=== PATIENT | male | born 1955 | race Caucasian/White ===

== ENCOUNTER 2016-05-26 11:32 | Emergency (ER) ==
[2016-05-26 11:51] VITALS: BP 151/78
[2016-05-26] MEDS ORDERED: DILAUDID IM ONE (13:25)
[2016-05-26] MEDS ORDERED: ZOFRAN ODT PO ONE (13:25)
[2016-05-26] MEDS ORDERED: DECADRON IM ONE (13:25)
--- NOTE | 2016-05-26 13:26 | PROVIDER DOCUMENTATION ---
HPI-Musculoskeletal Pain/Inj - GENERAL Chief Complaint: Back Pain Stated Complaint: BACK,RT LEG PAIN Time Seen by Provider: 05/26/16 13:00 Source: patient - HX OF PRESENT ILLNESS-MUSKULOSKELTAL Nature of Presenting Problem: Pt is a 61 y/o white male c chief complaint of lower lumber back pain radiating to his R hip and down the lateral aspect of his R leg in the sciatic n. distribution. Pt has a h/o 3 back surgeries and known sciatica. pt states he is set to follow up with his back surgeon later this week. He denies an new injury, loss of bowel or bladder control, loss of sensation to the groin. On arrival, pt is ambulatory and in minimal distress. Review of Systems - Adult - REVIEW OF SYSTEMS - ADULT Constitutional: reports: no symptoms reported. denies: chills, fatique Eyes: reports: no symptoms reported. denies: blurred vision, double vision Ears, Nose, Mouth & Throat: reports: no symptoms reported. denies: ear pain, nose pain Cardiovascular: reports: no symptoms reported. denies: chest pain, irregular heart rate Respiratory: reports: no symptoms reported. denies: cough, shortness of breath Gastrointestinal: reports: no symptoms reported. denies: abdominal pain, nausea Genitourinary: reports: no symptoms reported. denies: dysuria, hematuria Musculoskeletal: reports: bone pain, back pain, joint pain, muscle aches Integumentary: reports: no symptoms reported. denies: itching, rash Neurological: reports: no symptoms reported. denies: numbness, paresthesia Psychiatric: reports: no symptoms reported. denies: anxiety, emotional problems Endocrine: reports: no symptoms reported. denies: cold intolerance, heat intolerance Hematologic/Lymphatic: reports: no symptoms reported. denies: blood clots, low blood count Allergic/Immunologic: reports: no symptoms reported. denies: allergic reactions , food allergy All Other Systems: Reviewed and Negative Past History - Adult - PAST MEDICAL HISTORY-ADULT Review of Records: reports: Old Records Reviewed, Nursing Assessment Review, Medications Reviewed, Social history reviewed & non-contributory. Major Childhood Illnesses: reports: denies history Cardiovascular: reports: HTN, hyperlipidemia Respiratory: reports: denies history Gastrointestinal: reports: GERD Obstetrical/Gynecological: reports: denies history Genitourinary: reports: denies history Musculoskeletal: reports: arthritis, chronic pain, neck/back injury Neurological: reports: denies history Endocrine/Immune: reports: Diabetes Other Conditions: reports: denies history - PRIOR SURGERIES/PROCEDURES Surgical/Procedure History: reports: back/neck - IMMUNIZATION STATUS Childhood Immunizations: See Nurse Assessment Flu Vaccine: See Nurse Assessment - FAMILY HISTORY Family History: reviewed, not pertinent - SOCIAL HISTORY Smoking: denies Substance Use: none/never Alcohol Use Frequency: never Living Situation: family Physical Exam-Injury Related - Physical Exam-Injury Related Initial Vital Signs Reviewed: Yes General Appearance: appears well, alert, no apparent distress Eyes: PERRL/EOMI, pink conjunctivae Head, Ears, Nose, Mouth & Throat: normocephalic/atraumatic, moist mucous membranes, normal ENT inspection Neck: non-tender, full range of motion, supple Respiratory: chest non-tender, lungs clear, normal breath sounds Cardiovascular: normal peripheral pulses, regular rate, rhythm, no edema Abdominal Exam: normal bowel sounds, non tender, soft Lymphatic: no adenopathy Back Exam: normal inspection, no CVA tenderness, vertebral tenderness (lumbar spine) Extremity: normal range of motion, non-tender, normal gait Integumentary: normal color, warm/dry, blanching Neurologic: grossly normal, no motor/sensory deficits Psych/Mental Status: normal mood/affect, normal thought content, normal thought process, oriented x 3 - Glascow Coma Score Best Eye Response (Denys): (4) open spontaneously Best Verbal Response (Denys): (5) oriented Best Motor Response (Warren): (6) obeys commands Progress - PLAN OF CARE/RESULTS Progress/Plan/Lab Results: Orders Category Date Time Status Dexamethasone [Decadron] Med 05/26/16 13:25 Discontinued 10 mg IM NOW ONE Hydromorphone [Dilaudid] Med 05/26/16 13:25 Discontinued 2 mg IM NOW ONE Ondansetron Odt [Zofran Odt] Med 05/26/16 13:25 Discontinued 4 mg PO NOW ONE Vital Signs - 24 hr 05/26/16 11:49 Temperature 97.5 F L Pulse Rate 97 H Respiratory 18 Rate Blood Pressure 151/78 O2 Sat by Pulse 96 Oximetry Departure - Departure Time of Disposition Order: 13:25 DIAGNOSIS: Sciatica of right side Chronic back pain Qualifiers: Back pain location: low back pain Back pain laterality: right Sciatica presence : with sciatica Sciatica laterality: sciatica of right side Qualified Code(s): M54.41 - Lumbago with sciatica, right side Disposition: HOME 01 Certified Medical Emergency: Emergent Condition: Stable Additional Instructions: CONTINUE HOME MEDICATIONS. FOLLOW UP WITH YOUR ORTHO SPINE DOCTOR TOMORROW. ED Follow Up Instructions: You have been treated by a care provider in the Emergency Department. These instructions are being provided to you so you can have an understanding of how to care for yourself upon discharge. Upon discharge from the Emergency Department, you are responsible for making arrangements for follow-up care by a physician of your choice. Take all prescribed medications as directed. Return to the Emergency Department immediately for any new or worsening symptoms. You may call the Physician Referral phone number at [phone] to obtain a list of Physicians who are taking new patients. Referrals: Lisha Rose MD [Primary Care Provider] - Forms: Return to School/Parent Work Instructions: Back Pain, Adult, Sciatica, [id number] Attestation - Physician/ RAJAT Attestation Patient care was provided by Advanced Practice Provider:: Yes Advanced Practice Provider:: Tyshawn Woodard Advanced Practice Provider documentation review:: The Mid-level provider documentation, treatment plan and medical decision making was reviewed by the physician who agrees with all treatment and medical decision making by the MLP.
== END 2016-05-26 14:08 | disposition home or self-care (01) ==
LOC: ED 11:32
DX: M54.41 Lumbago with sciatica, right side (principal); M79.1 Myalgia; I10 Essential (primary) hypertension; E78.5 Hyperlipidemia, unspecified; K21.9 Gastro-esophageal reflux disease without esophagitis; M19.90 Unspecified osteoarthritis, unspecified site; G89.29 Other chronic pain; E11.9 Type 2 diabetes mellitus without complications; Z79.899 Other long term (current) drug therapy
CPT/HCPCS: 96372; J1170